=== PATIENT | female | born 1995 | race Caucasian/White ===

== ENCOUNTER 2017-08-14 10:59 | Emergency (ER) | payer OTHER ==
[~2017-08-14] VITALS: Ht 172.7 cm; Wt 63.5 kg
--- NOTE | 2017-08-14 11:29 | NUR ---
Pt state having Soma prescribed to her but did not help.
[2017-08-14] MEDS ORDERED: SERT100T PO (11:32)
[2017-08-14] MEDS ORDERED: CLON0.5T PO (11:32)
[2017-08-14] MEDS ORDERED: ALPR0.255 PO (11:32)
[2017-08-14] MEDS ORDERED: KETOROLAC TROMETHAMINE 30 MG INJ ONE (11:37)
[2017-08-14] MEDS ORDERED: KETOROLAC TROMETHAMINE 30 MG INJ IM ONE (11:45)
--- NOTE | 2017-08-14 12:04 | NUR ---
Dr Velazquez at the bedside for MSE.
[2017-08-14 12:37] VITALS: BP 121/79
--- NOTE | 2017-08-14 12:38 | NUR ---
Patient discharged to home in stable conditon. Written and verbal after care instructions given. Patient verbalizes understanding of instructions.
== END 2017-08-14 12:39 | disposition home or self-care (01) ==
LOC: ER 10:59
DX: S39.92XA Unspecified injury of lower back, initial encounter (principal); Z79.899 Other long term (current) drug therapy; V43.62XA Car passenger injured in collision with other type car in traffic accident, initial encounter; Y93.89 Activity, other specified; Y92.410 Unspecified street and highway as the place of occurrence of the external cause; Y99.8 Other external cause status
CPT/HCPCS: A4663; J1885